=== PATIENT | female | born 1955 | race Caucasian/White ===

== ENCOUNTER → 2021-02-28 12:47 | Outpatient (CLI) | payer MEDICARE, BC, SELFPAY ==
--- NOTE | 2021-02-28 12:55 | DI.RAD.S_ITS ---
PROCEDURE: XR DEXA AXIAL SKELETON INDICATIONS: Asymptomatic menopausal state COMPARISON: None. FINDINGS: This blank DEXA report has been sent in error by the PACS system. The correct and complete report will be forthcoming in 1-2 days. Thank you for your patience and understanding. Dictated by: Shalini Sosa MD, PhD on 02/28/2021 at 16:17 Approved by: Shalini Sosa MD, PhD on 02/28/2021 at 16:17
== END ==
PROVIDERS: PCP Family Medicine; Referring Provider Family Medicine; Visit Provider Family Medicine
DX: M81.0 Age-related osteoporosis without current pathological fracture (principal); Z78.0 Asymptomatic menopausal state; Z82.62 Family history of osteoporosis
CPT/HCPCS: 77080

== ENCOUNTER → 2022-06-02 15:14 | Outpatient (CLI) | payer MEDICARE, BC, SELFPAY ==
--- NOTE | 2022-06-02 15:39 | DI.DEXA.S_ITS ---
Indication: postmenopausal osteoporosis; monitoring treatment; Referring Provider: JUAN PABLO BARBOSA Study: Bone densitometry was performed. Exam Date: June 02, 2022 Accession number: [id number] Bone Density: Region BMD T-score Z-score Classification AP Spine(L1-L4) 0.753 -2.7 -0.8 Osteoporosis Femoral Neck (Left) 0.489 -3.2 -1.7 Osteoporosis Total Hip (Left) 0.595 -2.8 -1.5 Osteoporosis Femoral Neck (Right) 0.513 -3.0 -1.4 Osteoporosis Total Hip (Right) 0.608 -2.7 -1.4 Osteoporosis Total Hip Mean 0.602 -2.8 -1.5 Osteoporosis World Health Organization criteria for BMD impression classify patients as: Normal (T-score at or above -1.0), Osteopenia (T-score between -1.0 and -2.5), or Osteoporosis (T-score at or below -2.5). 10-year Fracture Risk: FRAX not reported because: Some T-score for Spine Total or Hip Total or Femoral Neck at or below -2.5 Treated for osteoporosis Previous Exams: -- Region Exam Age BMD T-score BMD Change BMD Change Date g/cm2 vs Baseline vs Previous -- AP Spine (L1-L4) 06/02/2022 67 0.753 -2.7 0.039 (5.4%)# 0.039 (5.4%)# 02/28/2021 66 0.714 -3.0 Total Hip(Left) 06/02/2022 67 0.595 -2.8 0.062 (11.7%)# 0.062 (11.7%)# 02/28/2021 66 0.533 -3.4 Total Hip(Right) 06/02/2022 67 0.608 -2.7 0.048 (8.6%)# 0.048 (8.6%)# 02/28/2021 66 0.560 -3.1 -- *Denotes significance at 95% confidence level, LSC for AP Spine = 0.022 g/cm2, LSC for Total Hip = 0.027 g/cm2 # Denotes dissimilar scan types or analysis methods Impression: The patient has osteoporosis, based on the Left Femoral Neck T-score. No significant bone loss was observed. Discussion: PATIENT UNDER TREATMENT WITH NO SIGNIFICANT BMD LOSS SINCE LAST EXAM. In an untreated patient, BMD typically declines with age. A lack of decline or gain is usually a sign that treatment is efficacious and fracture risk is reduced. It is important to ask patients whether they are taking their medications and to encourage continued and appropriate compliance with their osteoporosis therapies to reduce fracture risk. It is also important to review their risk factors and encourage appropriate calcium and vitamin D intakes, exercise, fall prevention and other lifestyle measures. Follow-Up: Consider a repeat BMD and Vertebral Fracture Assessment (VFA) exam in 2 years or sooner if medically necessary, to reassess this patient's status. Reported by: Cynthia Wen M.D. on 06/02/2022 3:47:00 PM.
== END ==
PROVIDERS: PCP Family Medicine; Referring Provider Family Medicine; Visit Provider Family Medicine
DX: M81.0 Age-related osteoporosis without current pathological fracture (principal); Z78.0 Asymptomatic menopausal state; Z79.83 Long term (current) use of bisphosphonates; Z90.710 Acquired absence of both cervix and uterus
CPT/HCPCS: 77080